=== PATIENT | female | born 1960 | race Caucasian/White ===

== ENCOUNTER 2018-10-08 14:57 | Outpatient (CLI) | payer OTHER ==
--- NOTE | 2018-10-08 16:15 | MMO ---
BILATERAL SCREENING MAMMOGRAMS: 10/08/18 This study is interpreted with the assistance of computer aided detection. COMPARISON: 12/11/16, 11/23/15, 08/23/14, 08/18/13. FINDINGS: There is a heterogeneously dense parenchymal pattern which may lower the sensitivity of mammography. There has been interval increase in number of calcification seen within the upper outer left breast. No dominant mass or architectural distortion is appreciated in either breast. IMPRESSION: BIRADS 0: Incomplete: Need Additional Imaging Evaluation and/or Prior Mammograms for Comparison Magnification compression CC and MLO views left breast in addition to 90 degree mediolateral view are recommended for further evaluation. POS: VIDAL
== END 2018-10-08 14:58 | disposition home or self-care (01) ==
LOC: SCSMAMMO 14:57
PROVIDERS: ATTEND Family Medicine
DX: Z12.31 Encounter for screening mammogram for malignant neoplasm of breast (principal)
CPT/HCPCS: 77067

== ENCOUNTER 2018-10-22 10:39 | Outpatient (CLI) | payer OTHER | END 2018-10-22 10:40 | disposition home or self-care (01) | LOC: BICMAMMO 10:39 | PROVIDERS: ATTEND Family Medicine | DX: Z12.31 Encounter for screening mammogram for malignant neoplasm of breast (principal) | CPT/HCPCS: G0279 ==

== ENCOUNTER → 2018-11-04 | Day surgery (SDC) | payer OTHER ==
--- NOTE | 2018-11-04 11:03 | MMO ---
STEREOTACTIC GUIDED LEFT BREAST BIOPSY AND BIOPSY MARKER CLIP PLACEMENT: 11/04/2018 HISTORY: Multiple microcalcifications in the upper outer left breast. TECHNIQUE: The procedure, including risks and complications, were explained to the patient, and informed consent was obtained. The patient was placed on the stereotactic-guided breast biopsy table in the prone po sition. Microcalcifications in the left breast were localized in a lateral medial projection utilizi ng stereotactic guidance. The skin and subcutaneous tissues were infiltrated with buffered 1% Lidocaine for local anesthesia. A small skin incision was made. A 10 gauge stereotactic guided biopsy needle was advanced into the b reasts, followed by stereotactic imaging. The needle was then further advanced, again followed by st ereotactic images demonstrating microcalcifications adjacent to the needle. As a result, six 10-gaug e core needle biopsy specimens were obtained. A specimen mammogram was performed, which demonstrated multiple microcalcifications within the specim en. As a result, a stereotactic guided biopsy marker clip was then deployed at the site of the biops y. Final images demonstrate a biopsy marker clip at the site of the biopsy. The needle was removed. Hemostasis was achieved with direct pressure. Post biopsy imaging of the left breast was performed , again demonstrating a biopsy marker clip in the left outer breast, with a decrease in the number of microcalcifications in the more lateral left breast. The patient tolerated the procedure well and without immediate complications. IMPRESSION: 1. Technically successful stereotactic guided biopsy of left breast microcalcifications. 2. Successful biopsy marker clip placement. POS: VIDAL
--- NOTE | 2018-11-04 11:04 | MMO ---
LEFT BREAST SPECIMEN MAMMOGRAM: DATE: 11/04/2018. HISTORY: Multiple microcalcifications in the upper outer left breast. Stereotactic-guided biopsy was performe d. FINDINGS: Submitted specimen mammogram demonstrates multiple calcifications seen within multiple core biopsy sp ecimens obtained from the left breast. IMPRESSION: Microcalcifications present in left breast specimen mammogram. POS: VIDAL
--- NOTE | 2018-11-04 11:06 | MMO ---
UNILATERAL POST BIOPSY LEFT BREAST MAMMOGRAM: 11/04/2018 HISTORY: Post stereotactic guided breast biopsy and biopsy marker clip placement. COMPARISON: Screening mammograms on 10/08/2018 and additional views of the left breast on 10/22/2018. FINDINGS: There is a heterogeneously dense parenchymal pattern, left breast. Multiple microcalcifications are again seen in the upper and outer left breast. A biopsy marker clip is now seen within the upper out er left breast, posterior depth, within the more lateral aspect of the left breast, with interval dec rease in microcalcifications seen in this region, compared to prior mammograms. IMPRESSION: Post biopsy mammograms demonstrating a biopsy marker clip in place. Pathology is currently pending. POS: VIDAL
== END ==
LOC: MAMMO 06:48
PROVIDERS: ATTEND Family Medicine
PROC: 0HBU3ZX Excision of Left Breast, Percutaneous Approach, Diagnostic (ICD-10-PCS; principal; 2018-11-04)
DX: N62 Hypertrophy of breast (principal); R92.1 Mammographic calcification found on diagnostic imaging of breast; Z79.899 Other long term (current) drug therapy
CPT/HCPCS: 19283; 76098; 88305

== ENCOUNTER 2019-10-27 09:03 | Outpatient (CLI) | payer OTHER ==
--- NOTE | 2019-10-27 10:02 | MMO ---
Bilateral MAMMO Bilat Screen [facility]. CLINICAL HISTORY: Patient is 59 years old and is seen for screening. The patient has no family history of breast cancer. The patient has no personal history of cancer. VIEWS: The views performed were: bilateral craniocaudal with tomosynthesis and bilateral mediolateral oblique with tomosynthesis. FILMS COMPARED: The present examination has been compared to prior imaging studies performed at [facility] on 02/07/2005, 04/26/2006, 10/02/2007 and 10/22/2018. This study has been interpreted with the assistance of computer-aided detection. MAMMOGRAM FINDINGS: The breasts are heterogeneously dense, which could obscure a lesion on mammography. Finding 1: There are calcifications seen in the outer region of the left breast. Finding remains unchanged from the prior study. Finding 2: There is a biopsy clip seen in the upper-outer region of the left breast. There are no suspicious masses, suspicious calcifications, or new areas of architectural distortion. IMPRESSION: THERE IS NO MAMMOGRAPHIC EVIDENCE OF MALIGNANCY. A ROUTINE FOLLOW-UP MAMMOGRAM IN 1 YEAR IS RECOMMENDED. ACR BI-RADS Category 2 - Benign finding MAMMOGRAPHY NOTE: 1. A negative mammogram report should not delay a biopsy if a dominant of clinically suspicious mass is present. 2. Approximately 10% to 15% of breast cancers are not detected by mammography. 3. Adenosis and dense breasts may obscure an underlying neoplasm. Reported by: CHING FERNÁNDEZ MD Electonically Signed: [id number]
== END 2019-10-27 09:04 | disposition home or self-care (01) ==
LOC: BICMAMMO 09:03
PROVIDERS: ATTEND Family Medicine
DX: Z12.31 Encounter for screening mammogram for malignant neoplasm of breast (principal)
CPT/HCPCS: 77067

== ENCOUNTER 2020-10-31 16:11 | Outpatient (CLI) | payer OTHER ==
--- NOTE | 2020-11-01 09:25 | MMO ---
Bilateral MAMMO Bilat Screen [facility]. CLINICAL HISTORY: Patient is 60 years old and is seen for screening. The patient has no family history of breast cancer. The patient has no personal history of cancer. The patient has a history of left Stereotatic Biopsy in 2018 - benign. VIEWS: The views performed were: bilateral craniocaudal with tomosynthesis and bilateral mediolateral oblique with tomosynthesis. FILMS COMPARED: The present examination has been compared to prior imaging studies performed at [facility] on 04/26/2006, 10/02/2007, 10/22/2018 and 10/27/2019. This study has been interpreted with the assistance of computer-aided detection. MAMMOGRAM FINDINGS: The breasts are heterogeneously dense, which could obscure a lesion on mammography. There are benign appearing calcifications in the left breast. Left biopsy clip. There are no suspicious masses, suspicious calcifications, or new areas of architectural distortion. IMPRESSION: THERE IS NO MAMMOGRAPHIC EVIDENCE OF MALIGNANCY. A ROUTINE FOLLOW-UP MAMMOGRAM IN 1 YEAR IS RECOMMENDED. THE RESULTS OF THIS EXAM WERE SENT TO THE PATIENT. ACR BI-RADS Category 2 - Benign finding MAMMOGRAPHY NOTE: 1. A negative mammogram report should not delay a biopsy if a dominant of clinically suspicious mass is present. 2. Approximately 10% to 15% of breast cancers are not detected by mammography. 3. Adenosis and dense breasts may obscure an underlying neoplasm. Reported by: ALIREZA HARRIS MD Electonically Signed: [id number]
== END 2020-10-31 16:12 | disposition home or self-care (01) ==
LOC: BICMAMMO 16:11
PROVIDERS: ATTEND Family Medicine
DX: Z12.31 Encounter for screening mammogram for malignant neoplasm of breast (principal); Z91.89 Other specified personal risk factors, not elsewhere classified
CPT/HCPCS: 77063; 77067

== ENCOUNTER 2021-05-18 12:56 | Outpatient (CLI) | payer OTHER ==
[~2021-05-18 12:56] MED LIST: Magnevist 469MG/ML 20 ML VIAL ONE
== END 2021-05-18 12:57 | disposition home or self-care (01) ==
LOC: BICMRI 12:56
PROVIDERS: ATTEND Surgery
DX: G95.9 Disease of spinal cord, unspecified (principal); M47.816 Spondylosis without myelopathy or radiculopathy, lumbar region
CPT/HCPCS: 72157; 72158; A9579

== ENCOUNTER 2021-12-19 12:15 | Outpatient (CLI) | payer BC | END 2021-12-19 12:16 | disposition home or self-care (01) | LOC: BICMAMMO 12:15 | PROVIDERS: ATTEND Family Medicine | DX: Z12.31 Encounter for screening mammogram for malignant neoplasm of breast (principal); Z91.89 Other specified personal risk factors, not elsewhere classified | CPT/HCPCS: 77063; 77067 ==

== ENCOUNTER 2023-02-25 08:19 | Outpatient (CLI) | payer BC | END 2023-02-25 08:20 | disposition home or self-care (01) | LOC: BICMAMMO 08:19 | PROVIDERS: ATTEND Family Medicine | DX: Z12.31 Encounter for screening mammogram for malignant neoplasm of breast (principal); N95.9 Unspecified menopausal and perimenopausal disorder; M85.80 Other specified disorders of bone density and structure, unspecified site | CPT/HCPCS: 77063; 77067; 77080 ==

== ENCOUNTER 2023-03-12 21:41 | Inpatient (IN) | payer BC ==
[2023-03-12] MEDS ORDERED: Meclizine HCl 25 MG TAB ONE (22:22)
[2023-03-12 22:36] LABS: #Eosinphils 0.1 thou/uL (0.0-0.7); #Lymphocytes 1.2 thou/uL (1.20-3.40); #Monocytes 0.4 thou/uL (0.11-0.59); #Neutrophils 3.9 thou/uL (1.40-6.50); %Basophils 0.8 % (0.0-1.0); %Eosinophils 1.5 % (0.0-10.0); %Lymphocytes 21.9 % (21.0-51.0); %Monocytes 6.8 % (0.0-10.0); Mean Corpuscular HGB CONC 32.2 g/dL (32.0-36.0); Mean Corpuscular Hemoglobin 30.1 pg (27.0-31.0); Mean Corpuscular Volume 93.5 fl (78.0-98.0); Mean Platelet Volume 7.8 fL (7.4-10.4); Platelet Count 234 10x3/uL (130-400); RBC Distribution Width 12.8 % (11.5-14.5); White Blood Cell (WBC) Count 5.7 10x3/uL (4.8-10.8)
[2023-03-12 22:50] LABS: ALT (SGPT) 14 U/L (8-55); AST (SGOT) 16 U/L (5-34); Albumin 4.2 g/dL (3.5-5.0); Alkaline Phosphatase 86 U/L (40-110); Anion Gap 15 mmol/L (10-20); BUN (Urea Nitrogen) 16 mg/dL (9.8-20.1); Bilirubin, Total 0.2 mg/dL (0.2-1.2); Calc. Creatinine Clearance 0 mL/min (70-130); Calcium 9.1 mg/dL (7.8-10.44); Carbon Dioxide 25 mmol/L (22-29); Chloride 104 mmol/L (98-107); Estimated GFR 63; Globulin 2.6 g/dL (2.4-3.5); Glucose 105 mg/dL (70-105); Potassium 3.8 mmol/L (3.5-5.1); Protein, Total 6.8 g/dL (6.0-8.3); Sodium 140 mmol/L (136-145)
[2023-03-12 23:13] LABS: Bacteria/HPF None Seen HPF (None Seen); Bilirubin Negative (Negative); Blood, Urine Negative (Negative); Clarity Clear (Clear); Glucose, Urine (Dipstick) Normal (Negative); Ketone, Urine Trace mg/dL (Negative); Leukocyte 75 Leu/uL (Negative); Nitrite Negative (Negative); Protein, Urine (Dipstick) Negative (Neg-Trace); RBC/HPF None Seen HPF (0-3); Specific Gravity, Urine 1.022 (1.002-1.036); Squamous Epithelial 0-3 HPF (0-3); Urobilinogen Normal mg/dL (Less than 2)
[2023-03-12] MEDS ORDERED: Ketorolac Tromethamine 30 MG/ML VIAL ONE (23:45)
[2023-03-13] MEDS ORDERED: Ondansetron PF 4 MG/2 ML Vial IVP PRN (00:42)
[2023-03-13 01:29] VITALS: BMI 29.4
[2023-03-13 02:08] LABS: Troponin I Less than 0.010 ng/mL (< 0.028)
[2023-03-13 04:39] LABS: #Eosinphils 0.1 thou/uL (0.0-0.7); #Lymphocytes 1.2 thou/uL (1.20-3.40); #Monocytes 0.4 thou/uL (0.11-0.59); #Neutrophils 3.6 thou/uL (1.40-6.50); %Basophils 0.8 % (0.0-1.0); %Eosinophils 1.1 % (0.0-10.0); %Lymphocytes 22.2 % (21.0-51.0); %Monocytes 7.4 % (0.0-10.0); %Neutrophils 68.5 % (42.0-75.0); Hemoglobin 11.8 g/dL (12.0-16.0); Mean Corpuscular HGB CONC 32.2 g/dL (32.0-36.0); Mean Corpuscular Hemoglobin 30.2 pg (27.0-31.0); Mean Corpuscular Volume 93.8 fl (78.0-98.0); Mean Platelet Volume 7.7 fL (7.4-10.4); Platelet Count 210 10x3/uL (130-400); RBC Distribution Width 12.6 % (11.5-14.5); Red Blood Cell (RBC) Count 3.91 mill/uL (4.20-5.40); White Blood Cell (WBC) Count 5.3 10x3/uL (4.8-10.8)
[2023-03-13 04:59] LABS: Anion Gap 13 mmol/L (10-20); BUN (Urea Nitrogen) 16 mg/dL (9.8-20.1); Calc. Creatinine Clearance 79 mL/min (70-130); Calcium 9.1 mg/dL (7.8-10.44); Carbon Dioxide 25 mmol/L (22-29); Chloride 104 mmol/L (98-107); Estimated GFR 65; Glucose 113 mg/dL (70-105); Potassium 4.7 mmol/L (3.5-5.1); Sodium 137 mmol/L (136-145)
[2023-03-13 05:04] LABS: Troponin I Less than 0.010 ng/mL (< 0.028)
[2023-03-13] MEDS: Acetaminophen 325 MG TAB PO PRN ×2 (10:58→20:19)
[2023-03-13] MEDS ORDERED: Loratadine 10 MG TAB PO SCH (11:15)
[2023-03-13] MEDS ORDERED: Cetirizine HCl 10 MG TAB PO SCH (11:15)
[2023-03-14 05:11] LABS: #Eosinphils 0.1 thou/uL (0.0-0.7); #Lymphocytes 1.2 thou/uL (1.20-3.40); #Monocytes 0.4 thou/uL (0.11-0.59); #Neutrophils 2.4 thou/uL (1.40-6.50); %Lymphocytes 29.7 % (21.0-51.0); %Monocytes 9.8 % (0.0-10.0); %Neutrophils 57.6 % (42.0-75.0); Hemoglobin 12.3 g/dL (12.0-16.0); Mean Corpuscular HGB CONC 31.5 g/dL (32.0-36.0); Mean Corpuscular Hemoglobin 30.1 pg (27.0-31.0); Mean Corpuscular Volume 95.8 fl (78.0-98.0); Mean Platelet Volume 8.3 fL (7.4-10.4); Platelet Count 202 10x3/uL (130-400); RBC Distribution Width 12.9 % (11.5-14.5); Red Blood Cell (RBC) Count 4.08 mill/uL (4.20-5.40); White Blood Cell (WBC) Count 4.2 10x3/uL (4.8-10.8)
[2023-03-14 05:37] LABS: Anion Gap 12 mmol/L (10-20); BUN (Urea Nitrogen) 24 mg/dL (9.8-20.1); Calc. Creatinine Clearance 76 mL/min (70-130); Calcium 8.9 mg/dL (7.8-10.44); Carbon Dioxide 22 mmol/L (22-29); Chloride 108 mmol/L (98-107); Estimated GFR 62; Glucose 107 mg/dL (70-105); Potassium 4.1 mmol/L (3.5-5.1); Sodium 138 mmol/L (136-145)
[2023-03-14] MEDS: Loratadine 10 MG TAB PO SCH (09:43)
[2023-03-14] MEDS: Montelukast Sodium 10 mg Tablet PO SCH (09:43)
[2023-03-14] MEDS ORDERED: Zolpidem Tartrate 5 MG TAB PO SCH (21:00)
[2023-03-14] MEDS: Acetaminophen 325 MG TAB PO PRN (22:16)
[2023-03-15 05:15] LABS: #Eosinphils 0.1 thou/uL (0.0-0.7); #Lymphocytes 1.4 thou/uL (1.20-3.40); #Monocytes 0.4 thou/uL (0.11-0.59); #Neutrophils 2.8 thou/uL (1.40-6.50); %Eosinophils 2.4 % (0.0-10.0); %Lymphocytes 29.5 % (21.0-51.0); %Monocytes 9.1 % (0.0-10.0); Hemoglobin 12.9 g/dL (12.0-16.0); Mean Corpuscular Hemoglobin 30.9 pg (27.0-31.0); Mean Corpuscular Volume 93.6 fl (78.0-98.0); Mean Platelet Volume 8.1 fL (7.4-10.4); Platelet Count 188 10x3/uL (130-400); RBC Distribution Width 12.9 % (11.5-14.5); Red Blood Cell (RBC) Count 4.17 mill/uL (4.20-5.40); White Blood Cell (WBC) Count 4.8 10x3/uL (4.8-10.8)
[2023-03-15 05:44] LABS: Anion Gap 14 mmol/L (10-20); BUN (Urea Nitrogen) 18 mg/dL (9.8-20.1); Calc. Creatinine Clearance 87 mL/min (70-130); Calcium 9.4 mg/dL (7.8-10.44); Carbon Dioxide 21 mmol/L (22-29); Chloride 106 mmol/L (98-107); Estimated GFR 73; Glucose 95 mg/dL (70-105); Potassium 3.9 mmol/L (3.5-5.1); Sodium 137 mmol/L (136-145)
[2023-03-15] MEDS: Montelukast Sodium 10 mg Tablet PO SCH (08:38)
[2023-03-15] MEDS: Loratadine 10 MG TAB PO SCH (08:38)
[2023-03-15 13:09] VITALS: BP 120/89; TEMP 97.9
[2023-03-15] MEDS ORDERED: Venlafaxine XR 37.5 MG CAP PO SCH (21:00)
== END 2023-03-15 15:15 | disposition home or self-care (01) | DRG 312 ==
LOC: ERS 21:41 → 2SW 03-13 00:05 → OBSVTOIN 03-13 11:03
PROVIDERS: ADMIT Internal Medicine; ATTEND Internal Medicine
PROC: 4A10X4Z Monitoring of Central Nervous Electrical Activity, External Approach (ICD-10-PCS; principal; 2023-03-14)
PROC: 5A09357 Assistance with Respiratory Ventilation, Less than 24 Consecutive Hours, Continuous Positive Airway Pressure (ICD-10-PCS; 2023-03-15)
DX: R55 Syncope and collapse (principal); G47.33 Obstructive sleep apnea (adult) (pediatric); G43.909 Migraine, unspecified, not intractable, without status migrainosus; Z88.8 Allergy status to other drugs, medicaments and biological substances; Z79.899 Other long term (current) drug therapy; Z90.49 Acquired absence of other specified parts of digestive tract; Z98.890 Other specified postprocedural states; Z88.1 Allergy status to other antibiotic agents
CPT/HCPCS: 36415; 70450; 70551; 71045; 80048; 80053; 81003; 81015; 84443; 84484; 85025; 87086; 93005; 93306; 93880; 95712; 95819; 95957; 96374; J1885